=== PATIENT | male | born 1965 | race Hispanic/Latino ===

== ENCOUNTER 2018-12-10 07:12 | Emergency (ER) | payer MEDICARE ==
[2018-12-10 08:32] LABS: BASOPHILS % (AUTO) 1.1 % (0.0-5.0); EOSINOPHILS % (AUTO) 2.6 % (0.0-8.0); HEMATOCRIT 33.9 % (42-54); LYMPHOCYTES % (AUTO) 9.2 % (21.0-51.0); MEAN CORPUSCULAR HEMOGLOBIN 29.9 pg (27.0-33.0); MEAN CORPUSCULAR HGB CONC 33.5 g/dL (32.0-36.0); MEAN CORPUSCULAR VOLUME 89.3 fL (79-99); MONOCYTES % (AUTO) 6.4 % (3.0-13.0); NEUTROPHILS % (AUTO) 80.7 % (40.0-77.0); NUCLEATED RED BLOOD CELLS 0.1 % (0.0-0.19); PLATELET COUNT (AUTO) 142 K/uL (130-400); RED CELL DISTRIBUTION WIDTH 16.2 % (11.0-15.5); WHITE BLOOD COUNT (AUTO) 4.9 K/uL (4.8-10.8)
[2018-12-10 08:54] LABS: CREATININE 6.8 mg/dL (0.5-1.5); POTASSIUM 4.5 mmol/L (3.5-5.1)
[2018-12-10 08:59] LABS: ALBUMIN 3.9 g/dL (3.5-5.0); BILIRUBIN,TOTAL 1.2 mg/dL (0.2-1.0); TOTAL PROTEIN, SERUM 7.8 g/dL (6.0-8.3)
== END 2018-12-10 10:30 | disposition home or self-care (01) ==
LOC: EDH 07:12
DX: G47.00 Insomnia, unspecified (principal); R06.00 Dyspnea, unspecified; I12.0 Hypertensive chronic kidney disease with stage 5 chronic kidney disease or end stage renal disease; E11.22 Type 2 diabetes mellitus with diabetic chronic kidney disease; N18.6 End stage renal disease; E78.5 Hyperlipidemia, unspecified; Z99.2 Dependence on renal dialysis; Z98.890 Other specified postprocedural states
CPT/HCPCS: 36415; 71045; 80053; 84484; 85025; 93005

== ENCOUNTER 2025-04-13 07:47 | Day surgery (SDC) | payer OTHER, MEDICARE ==
[2025-04-10 13:18] LABS: IMMATURE GRANULOCYTE ABSOLUTE 0.03 K/uL (0-1); NUCLEATED RED BLOOD CELLS 0.0 % (0.0-0.19); PLATELET COUNT (AUTO) 135 K/uL (130-400); RED BLOOD CELL COUNT(AUTO) 3.24 MIL/uL (4.50-6.20); RED CELL DISTRIBUTION WIDTH 14.5 % (11.0-15.5); WHITE BLOOD COUNT (AUTO) 5.3 K/uL (4.8-10.8)
[2025-04-10 13:27] LABS: INR 0.97 (0.85-1.15)
[2025-04-10 13:35] LABS: ASPARTATE AMINOTRANSFERASE 12.0 U/L (10-37); GLOMERULAR FILTR. RATE CALC 7.0 mL/min (>90); GLUCOSE,RANDOM 281.0 mg/dL (70-105); SODIUM SERUM 135.0 mmol/L (136-145); TOTAL PROTEIN, SERUM 7.7 g/dL (6.0-8.3); UREA NITROGEN, BLOOD 36.0 mg/dL (7-18)
[2025-04-10 13:40] LABS: CREATININE 8.5 mg/dL (0.5-1.3)
[2025-04-10 15:11] VITALS: BP 145/69; PULSE 77; RESP 18; TEMP 97.7
[2025-04-13] VITALS (15 sets, daily range): BP systolic 123–157; BP diastolic 40–70; PULSE 71–87; RESP 14–20; TEMP 96.2–97.9
[~2025-04-13] VITALS: Ht 165.1 cm; Wt 94.5 kg
[2025-04-13] MEDS: HEParin-NS 1,000 UNIT/500 ML 500 ML IV ONE
[~2025-04-13 07:47] MED LIST: FURO40TA5 PO; LEVO75CA6 PO; LOSA100T59 PO; METO-409 PO; SEVE800T27 PO; SIMV-43 PO
[2025-04-13] MEDS: 0.9% NACL 500ML IV.SOLN 500 ML IV ONE (08:31)
[2025-04-13 08:41] LABS: CREATININE 5.8 mg/dL (0.5-1.3); GLOMERULAR FILTR. RATE CALC 11.0 mL/min (>90); GLUCOSE,RANDOM 195.0 mg/dL (70-105); SODIUM SERUM 136.0 mmol/L (136-145); UREA NITROGEN, BLOOD 18.0 mg/dL (7-18)
[2025-04-13] MEDS ORDERED: GLYCOPYRROLATE 0.2 MG/ML 5 ML VIAL ONE (12:42)
[2025-04-13] MEDS ORDERED: LIDOCAINE PF 100MG/5ML (2%) SYRINGE 5ML ONE ×2 (12:42→12:43)
[2025-04-13] MEDS ORDERED: NEOSTIGMINE METHYLSULFATE 1MG/ML IV ONE (12:42)
--- NOTE | 2025-04-13 15:25 | OP ---
Operative Note: DATE OF PROCEDURE: 04/13/25 SURGEON: WINSTON RAYGOZA MD ASSOCIATE PUBLISHER: Dr. 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 Once general endotracheal anesthesia is achieved patient's left upper extremity is prepped and draped in sterile fashion. I then proceeded to create a transverse incision over top of the antecubital fossa at the level of the arteriovenous anastomosis and proceeded to dissect around the proximal portion of the fistula just distal to the anastomosis and obtained proximal control. I then proceeded to create a transverse incision with a 15 blade at the upper arm at the distal fistula past the aneurysms. Proceeded to dissect through the skin and subcutaneous tissue and obtain distal control. Heparin 5000 units were given. Once we had proximal and distal control I then proceeded to use the [place] 35 vascular load to divide the fistula proximally and distally. I then created a longitudinal incision over top of the aneurysms and then proceeded to use Bovie cautery to excise the aneurysm completely clipping it every branch from any collaterals that we identified. We then proceeded to obtain hemostasis at the surgical bed. I then proceeded to close his large incision where the aneurysm used to lay using 3-0 Vicryl running fashion. And leaving just the 2 incisions where we had exposure of the inflow and the outflow. I then proceeded to use a straight tunneler to tunnel from the proximal to the distal incision medially from our previous surgical bed and then through here proceeded to tunnel and 8 mm straight graft making sure that the dotted line stayed up. I then proceeded to excise the staple lines. And created into an anastomosis on the arterial side and to end with 6-0 Prolene and on the venous side as well and to end with 6-0 Prolene as well. Once both anastomosis were created we then confirmed that there was a good thrill throughout the graft. No bleeding was seen. All incisions were closed in 2 layers. With 3-0 Vicryl and then 4-0 Monocryl. The incision at the antecubital fossa on the upper arm we applied Dermabond over top. In the longitudinal incision over top of where the aneurysms used to be we applied a medela dressing over top. Patient tolerated the procedure well all counts were correct x2 at the end of the procedure. WINSTON RAYGOZA MD Apr 13, 2025 15:25
--- NOTE | 2025-04-13 16:55 | NUR ---
POST PROCEDURE LEFT UPPER ARM NEGATIVE PRESSURE DRESSING IN PLACE. DRESSING INTACT. NO REDNESS OR SWELLING NOTED TO DRESSING. NO ACTIVE BLEEDING OR DRAINAGE NOTED. NEGATIVE PRESSURE DRESSING ON AND ACTIVE.
--- NOTE | 2025-04-13 17:52 | NUR ---
POST OP DRESSING IN PLACE TO LEFT UPPER ARM. NEGATIVE PRESSURE WOUND VAC IN PLACE ACTIVE AND ON. NO REDNESS OR SWELLING NOTED. NO ACTIVE BLEEDING OR DRAINAGE NOTED. DRESSING DRY AND IN PLACE.
== END 2025-04-13 17:55 | disposition home or self-care (01) ==
LOC: DAH 07:47
PROVIDERS: ATTEND Student in an Organized Health Care Education/Training Program
DX: I72.1 Aneurysm of artery of upper extremity (principal); N18.6 End stage renal disease; I12.0 Hypertensive chronic kidney disease with stage 5 chronic kidney disease or end stage renal disease; E11.22 Type 2 diabetes mellitus with diabetic chronic kidney disease; E03.9 Hypothyroidism, unspecified; E78.5 Hyperlipidemia, unspecified; Z98.890 Other specified postprocedural states
CPT/HCPCS: 80053; 85025; 85610; 85730; 86850; 86900; 86901; 36415 ×2; 36830; 37799; 80048; 82948 ×2; 88304; A6260; A4663; J7040 ×2; A4649 ×5; C1768; J3010 ×2; J1100; J3490 ×3; J2003 ×2; J2720; J2704; J2405; J2710; J1644; J2371; J0690; A9272; C1713 ×3; A4215; A4657; A4213; A4222; A4216; A4223 ×2; A4221; A4600